=== PATIENT | male | born 1985 | race Caucasian/White ===

== ENCOUNTER 2020-10-10 13:27 | Emergency (ER) | payer OTHER ==
[~2020-10-10] VITALS: Ht 182 cm; Wt 140.0 kg
[2020-10-10] MEDS ORDERED: ASPIRIN 81 MG CHEW (CHILDREN'S ASA) PO ONE (14:00)
[2020-10-10] MEDS ORDERED: LIDOCAINE 2% VISCOUS 15 ML UDC PO ONE (14:00)
[2020-10-10] MEDS ORDERED: ANTACID SUSP 30 ML UDC (MYLANTA) PO ONE (14:00)
[2020-10-10] MEDS ORDERED: FAMOTIDINE 20MG/2ML IV (PEPCID) IV STA (14:00)
[2020-10-10 14:13] LABS: BASOPHILS # (AUTO) 0.1 10^3/uL (0.0-0.1); BASOPHILS % (AUTO) 1 % (0-10); EOSINOPHILS # (AUTO) 0.4 10^3/uL (0.0-0.3); EOSINOPHILS % (AUTO) 4 % (0-10); HEMATOCRIT 44 % (40-54); HEMOGLOBIN 14.8 g/dL (13.3-17.7); LYMPHOCYTES # (AUTO) 2.4 10^3/uL (1.0-4.0); LYMPHOCYTES % (AUTO) 25 % (12-44); MEAN CORPUSCULAR HEMOGLOBIN 29 pg (25-34); MEAN CORPUSCULAR HGB CONC 33 g/dL (32-36); MEAN CORPUSCULAR VOLUME 87 fL (80-99); MEAN PLATELET VOLUME 10.9 fL (9.0-12.2); MONOCYTES # (AUTO) 0.7 10^3/uL (0.0-1.0); MONOCYTES % (AUTO) 8 % (0-12); NEUTROPHILS # (AUTO) 5.8 10^3/uL (1.8-7.8); NEUTROPHILS % (AUTO) 62 % (42-75); PLATELET COUNT 281 10^3/uL (130-400); WHITE BLOOD COUNT 9.3 10^3/uL (4.3-11.0)
[2020-10-10 14:27] LABS: INR 1.1 (0.8-1.4); PROTHROMBIN TIME PATIENT 14.3 SEC (12.2-14.7)
[2020-10-10 14:34] LABS: ALANINE AMINOTRANSFERASE 26 U/L (0-55); ALBUMIN 4.4 GM/DL (3.2-4.5); ALKALINE PHOSPHATASE 74 U/L (40-136); BILIRUBIN,TOTAL 0.3 MG/DL (0.1-1.0); BUN/CREATININE RATIO 11; CALCIUM 9.3 MG/DL (8.5-10.1); CARBON DIOXIDE 27 MMOL/L (21-32); CHLORIDE 104 MMOL/L (98-107); CREATININE SERUM 0.88 MG/DL (0.60-1.30); GFR ESTIMATED > 60; GLUCOSE 117 MG/DL (70-105); MAGNESIUM 1.7 MG/DL (1.6-2.4); POTASSIUM 3.8 MMOL/L (3.6-5.0); SODIUM 140 MMOL/L (135-145); TOTAL PROTEIN 7.6 GM/DL (6.4-8.2)
--- NOTE | 2020-10-10 14:37 | ED Chest Pain ---
General Chief Complaint: Chest Pain Stated Complaint: CP, SOB, DIZZY Nursing Triage Note: ARRIVED VIA AMB TO ROOM 01. ANXIOIUS. STATES HE WAS AT WORK AND EXPERIENCED A BRIEF CP THAT LASTED A MINUTE ALONG WITH SOA. STATES THIS HAS HAPPENED X3. DENIES CP OR SOA AT THIS TIME. Nursing Sepsis Screen: No Definite Risk Source: patient Exam Limitations: no limitations History of Present Illness Date Seen by Provider: Oct 10, 2020 Time Seen by Provider: 13:51 Initial Comments Here with report of sudden onset of sharp chest pain that went through to his back. Lasted about a minute and was associated with shortness of air. It then went away but he felt a little dizzy. He has had a few weeks of intermittent dizziness. He was checked at work and found to be slightly tachycardic. Ultimately he presented here. Does have family history of diabetes and heart disease. Does admit to drinking 2-3 or 4 drinks a night, usually of beer. Overall better currently. Did have an issue with acid reflux a month ago and started on omeprazole. States that he is taking that daily. Timing/Duration: 1 hour, changing over time, intermittent, gone now Severity/Quality: moderate, sharp Location: central Radiation: back Activities at Onset: none Prior CP/Workup: no prior cardiac workup ASA po BELT SPLICER: No NTG SL BELT SPLICER: No Associated Symptoms: No abdominal pain; back pain; No diaphoresis, No nausea/vomiting; shortness of breath; No weakness Allergies and Home Medications Allergies Coded Allergies: No Known Drug Allergies (Unverified , 10/10/20) Home Medications No Active Prescriptions or Reported Meds Patient Home Medication List Home Medication List Reviewed: Yes Review of Systems Review of Systems Constitutional: see HPI; No chills, No fever EENTM: No Nose Congestion, No Throat Pain Respiratory: Denies Cough, Denies Shortness of Air Cardiovascular: Chest Pain, Lightheadedness Gastrointestinal: No Symptoms Reported Genitourinary: No Symptoms Reported Musculoskeletal: see HPI; No muscle pain All Other Systems Reviewed Negative Unless Noted: Yes Past Swnwcry-Wwtpdd-Ieidgq Hx Past Med/Social Hx: Reviewed Nursing Past Med/Soc Hx Patient Social History Alcohol Use: Regular Use Alcohol Beverage of Choice: Beer Smoking Status: Former Smoker Recent Infectious Disease Expo: No Recent Hopitalizations: No Seasonal Allergies Seasonal Allergies: No Past Medical History Surgeries: No Respiratory: No Cardiac: No Neurological: No Genitourinary: No Gastrointestinal: No Musculoskeletal: No Endocrine: No Chronic Eye Infection Cancer: No Psychosocial: Yes Anxiety Integumentary: No Family Medical History Reviewed Nursing Family Hx Heart Disease, Cancer, Diabetes, Hypertension Physical Exam Vital Signs Vital Signs - First Documented 10/10/20 13:30 Temp 37.0 Pulse 91 Resp 16 B/P (MAP) 129/80 (96) Pulse Ox 99 O2 Delivery Room Air Capillary Refill : Less Than 3 Seconds Height, Weight, BMI Height: '" Weight: lbs. oz. kg; 42.00 BMI Method: General Appearance: No Apparent Distress, WD/WN, Obese HEENT: PERRL/EOMI, Pharynx Normal Neck: Full Range of Motion, Non Tender, Supple Respiratory: Lungs Clear, Normal Breath Sounds Cardiovascular: Regular Rate, Rhythm, No Murmur Gastrointestinal: Non Tender, Soft Extremity: Normal Range of Motion, Non Tender Neurologic/Psychiatric: Alert, Oriented x3 Skin: Normal Color, Warm/Dry Progress/Results/Core Measures Results/Orders Lab Results Laboratory Tests Test 10/10/20 14:05 10/10/20 15:36 Range/Units White Blood Count 9.3 4.3-11.0 10^3/uL Red Blood Count 5.12 4.30-5.52 10^6/uL Hemoglobin 14.8 13.3-17.7 g/dL Hematocrit 44 40-54 % Mean Corpuscular Volume 87 80-99 fL Mean Corpuscular Hemoglobin 29 25-34 pg Mean Corpuscular Hemoglobin Concent 33 32-36 g/dL Red Cell Distribution Width 12.8 10.0-14.5 % Platelet Count 281 130-400 10^3/uL Mean Platelet Volume 10.9 9.0-12.2 fL Immature Granulocyte % (Auto) 0 % Neutrophils (%) (Auto) 62 42-75 % Lymphocytes (%) (Auto) 25 12-44 % Monocytes (%) (Auto) 8 0-12 % Eosinophils (%) (Auto) 4 0-10 % Basophils (%) (Auto) 1 0-10 % Neutrophils # (Auto) 5.8 1.8-7.8 10^3/uL Lymphocytes # (Auto) 2.4 1.0-4.0 10^3/uL Monocytes # (Auto) 0.7 0.0-1.0 10^3/uL Eosinophils # (Auto) 0.4 H 0.0-0.3 10^3/uL Basophils # (Auto) 0.1 0.0-0.1 10^3/uL Immature Granulocyte # (Auto) 0.0 0.0-0.1 10^3/uL Prothrombin Time 14.3 12.2-14.7 SEC INR Comment 1.1 0.8-1.4 Activated Partial Thromboplast Time 30 24-35 SEC D-Dimer < 0.27 0.00-0.49 UG/ML Sodium Level 140 135-145 MMOL/L Potassium Level 3.8 3.6-5.0 MMOL/L Chloride Level 104 98-107 MMOL/L Carbon Dioxide Level 27 21-32 MMOL/L Anion Gap 9 5-14 MMOL/L Blood Urea Nitrogen 10 7-18 MG/DL Creatinine 0.88 0.60-1.30 MG/DL Estimat Glomerular Filtration Rate > 60 BUN/Creatinine Ratio 11 Glucose Level 117 H 70-105 MG/DL Calcium Level 9.3 8.5-10.1 MG/DL Corrected Calcium 9.0 8.5-10.1 MG/DL Magnesium Level 1.7 1.6-2.4 MG/DL Total Bilirubin 0.3 0.1-1.0 MG/DL Aspartate Amino Transf (AST/SGOT) 19 5-34 U/L Alanine Aminotransferase (ALT/SGPT) 26 0-55 U/L Alkaline Phosphatase 74 40-136 U/L Myoglobin 50.3 10.0-92.0 NG/ML Troponin I < 0.028 < 0.028 <0.028 NG/ML Total Protein 7.6 6.4-8.2 GM/DL Albumin 4.4 3.2-4.5 GM/DL TSH [place] Testing 1.44 0.35-4.94 UIU/ML My Orders Orders - LUIS FERNANDO DOBBS MD Cbc With Automated Diff (10/10/20 14:00) Magnesium (10/10/20 14:00) Chest 1 View, Ap/Pa Only (10/10/20 14:00) Ekg Tracing (10/10/20 14:00) Comprehensive Metabolic Panel (10/10/20 14:00) Myoglobin Serum (10/10/20 14:00) Protime With Inr (10/10/20 14:00) Partial Thromboplastin Time (10/10/20 14:00) O2 (10/10/20 14:00) Monitor-Rhythm Ecg Trace Only (10/10/20 14:00) Lipid Panel (10/11/20 06:00) Ed Iv/Invasive Line Start (10/10/20 14:00) Fibrin Degradation Products (10/10/20 14:00) Troponin I (10/10/20 14:00) Aspirin Chewable Tablet (Baby Aspirin Ch (10/10/20 14:00) Lidocaine 2% Viscous 15 Ml (Xylocaine Vi (10/10/20 14:00) Antacid Suspension (Mylanta Suspension (10/10/20 14:00) Famotidine Injection (Pepcid Injection) (10/10/20 14:00) Thyroid Analyzer (10/10/20 15:16) Troponin I (10/10/20 15:24) Medications Given in ED Current Medications Medications Dose Ordered Sig/Ana Route Start Time Stop Time Status Last Admin Dose Admin Al Hydrox/Mg Hydrox/Simethicone 30 ml ONCE ONCE PO 10/10/20 14:00 10/10/20 14:01 DC 10/10/20 14:15 30 ML Aspirin 324 mg ONCE ONCE PO 10/10/20 14:00 10/10/20 14:01 DC 10/10/20 14:13 324 MG Lidocaine HCl 15 ml ONCE ONCE PO 10/10/20 14:00 10/10/20 14:01 DC 10/10/20 14:15 15 ML Vital Signs/I&O 10/10/20 13:30 Temp 37.0 Pulse 91 Resp 16 B/P (MAP) 129/80 (96) Pulse Ox 99 O2 Delivery Room Air Blood Pressure Mean: 96 Progress Progress Note : Progress Note Seen and evaluated. IV, labs, chest x-ray and EKG ordered. ASA 324 mg p.o. Pepcid 20 mg IV and GI cocktail ordered. Monitor patient. 1515: Pain-free currently. No significant findings. We will repeat a troponin at 1530. If this is still negative then I think he can safely be discharged home. He has appointment with Dr. Hough on and I have instructed him to keep that appointment. We will add thyroid study now and view those results. Monitor patient. 1609: Troponin repeat study is negative. Thyroid study is normal. Currently no pain. At this point I think he is safe to do discharge. I will send a copy of the chart to Dr. Hough. He has appointment on . Discharged home with return precautions. Patient verbalized understanding of instructions and agreement with plan. Initial ECG Impression Date: Oct 10, 2020 Initial ECG Impression Time: 13:37 Initial ECG Rate: 91 Initial ECG Rhythm: Normal Sinus Initial ECG Comparisson: No Previous ECG Available Comment Sinus rhythm with normal axis. No evidence of ST elevation LA. No previous available for comparison. Interpreted by me. Diagnostic Imaging Diagonstic Imaging: Xray Plain Films/CT/US/NM/MRI: chest Comments NAME: ABHIJEET RUBIO [facility] REC#: [id number] PT STATUS: REG ER : 1985 PHYSICIAN: LUIS FERNANDO DOBBS MD ADMIT DATE: 10/10/20/ER Draft Date of Exam:10/10/20 CHEST 1 VIEW, AP/PA ONLY INDICATION: Chest pain. TECHNIQUE: Single view chest 3:01 PM. CORRELATION STUDY: None FINDINGS: The heart size is borderline. The mediastinal configuration and pulmonary vascularity are within normal limits. The lungs are clear with no consolidating infiltrate. There is no significant effusion or pneumothorax. IMPRESSION: 1. Negative for acute abnormality of the chest. Dictated on workstation # [id number] Dict: 10/10/20 1505 Trans: 10/10/20 1505 DO [id number] Interpreted by: LEANNE DIAZ DO Electronically signed by: Departure Impression Primary Impression: Chest pain Qualified Codes: R07.9 - Chest pain, unspecified Disposition: HOME, SELF-CARE Condition: Improved Departure-Patient Inst. Decision time for Depature: 16:10 Referrals: NO,LOCAL PHYSICIAN (PCP/Family) Primary Care Physician Patient Instructions: Chest Pain (DC) Add. Discharge Instructions: All discharge instructions reviewed with patient and/or family. Voiced understanding. Drink plenty of fluids and eat a normal diet. Decrease alcohol intake. You may take an [id number] Pepcid/famotidine 20 mg tablet daily for the next several days and then as needed along with your omeprazole. Keep appointment with your doctor on as scheduled. Return for worse pain, fever, vomiting, weakness, breathing problems or other concerns as needed. Scripts No Active Prescriptions or Reported Meds Copy Copies To 1: JANIE HOUGH MD, TIMOTHY D MD Oct 10, 2020 14:37
--- NOTE | 2020-10-10 15:06 | Diagnostic Imaging Report ---
INDICATION: Chest pain. TECHNIQUE: Single view chest 3:01 PM. CORRELATION STUDY: None FINDINGS: The heart size is borderline. The mediastinal configuration and pulmonary vascularity are within normal limits. The lungs are clear with no consolidating infiltrate. There is no significant effusion or pneumothorax. IMPRESSION: 1. Negative for acute abnormality of the chest. Dictated by: Dictated on workstation # [id number]
[2020-10-10 16:29] VITALS: BP 129/94
== END 2020-10-10 16:29 | disposition home or self-care (01) ==
LOC: ER 13:31
DX: R07.9 Chest pain, unspecified (principal); R42 Dizziness and giddiness; F41.9 Anxiety disorder, unspecified; Z87.891 Personal history of nicotine dependence; Z82.49 Family history of ischemic heart disease and other diseases of the circulatory system; Z80.9 Family history of malignant neoplasm, unspecified
CPT/HCPCS: 36415; 71045; 80053; 83735; 83874; 84443; 84484; 85025; 85379; 85610; 85730; 93005; 93041

== ENCOUNTER 2020-10-17 13:57 | Emergency (ER) | payer BC, OTHER ==
[~2020-10-17] VITALS: Ht 72 cm; Wt 139.0 kg
--- NOTE | 2020-10-17 15:00 | ED General ---
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 He states that now he has a stiff neck. Pt states he has been dizzy for weeks and followed up with his PCP nd has a MRI set up for next friday. Pt states he has an unbearable amount of anxiety the last week and he is not sleeping. pt has been losing weight. Nursing Sepsis Screen: No Definite Risk (TIKI MAHMOOD STUDENT) History of Present Illness Date Seen by Provider: Oct 17, 2020 Time Seen by Provider: 14:20 Initial Comments This is a 35 year old male presenting to the Emergency Department for a chief complaint of a popping on the top of his head. He was laying on the couch when he felt a pop on top of his head. He also felt like "fire going through his veins". He complained of dizziness for 3-4 weeks, feeling off balance, confusion, vertigo on with eye movement and not body, loss of concentration, difficulty gathering words, blurred vision, stiff neck and weakness everywhere. He has been unable to sleep or eat and has lost 12 pounds in 4 days. He denies head pain. He talked to Dr. Hough in [place] on who scheduled an MRI in a couple of weeks. 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 drinks alcohol 3d/wk. no drugs allergies to medicine: none medications: prilosec (TIKI MAHMOOD STUDENT) Allergies and Home Medications Allergies Coded Allergies: No Known Drug Allergies (Unverified , 10/10/20) Home Medications No Active Prescriptions or Reported Meds Patient Home Medication List Home Medication List Reviewed: Yes (RENALDO MORALES MD) Review of Systems Review of Systems Constitutional: dizziness, weakness EENTM: blurred vision Respiratory: no symptoms reported Cardiovascular: no symptoms reported Gastrointestinal: no symptoms reported Genitourinary: no symptoms reported Musculoskeletal: neck pain Skin: no symptoms reported Psychiatric/Neurological: Anxiety, Depressed, Weakness, Other (confusion) Hematologic/Lymphatic: No Symptoms Reported Immunological/Allergic: no symptoms reported (TIKI MAHMOOD STUDENT) Past Vvcgxxr-Hdzdwz-Pekiqo Hx Past Med/Social Hx: Reviewed Nursing Past Med/Soc Hx (RENALDO MORALES MD) Patient Social History Alcohol Use: Occasionally Uses Number of Drinks Today: AA Alcohol Beverage of Choice: Beer Smoking Status: Never a Smoker Recent Infectious Disease Expo: No Recent Hopitalizations: No (TIKI MAHMOOD) Seasonal Allergies Seasonal Allergies: No (TIKI MAHMOOD) Past Medical History Surgeries: No Respiratory: No Cardiac: No Neurological: No Genitourinary: No Gastrointestinal: No Gastroesophageal Reflux Musculoskeletal: No Endocrine: No Chronic Eye Infection Cancer: No Psychosocial: Yes Anxiety Integumentary: No (TIKI MAHMOOD) Family Medical History Heart Disease, Cancer, Diabetes, Hypertension (TIKI MAHMOOD) Physical Exam Vital Signs Vital Signs - First Documented 10/17/20 14:05 Temp 36.7 Pulse 91 Resp 18 B/P (MAP) 148/99 (115) Pulse Ox 95 O2 Delivery Room Air (RENALDO MORALES MD) Vital Signs Capillary Refill : Less Than 3 Seconds (TIKI MAHMOOD) Height, Weight, BMI Height: '" Weight: lbs. oz. kg; 268.00 BMI Method: General Appearance: Mild Distress (TIKI MAHMOOD) General Appearance: WD/WN, Mild Distress (Mildly anxious), Obese HEENT: PERRL/EOMI, Normal ENT Inspection Neck: Normal Inspection Respiratory: Lungs Clear, Normal Breath Sounds, No Accessory Muscle Use, No Respiratory Distress Cardiovascular: Regular Rate, Rhythm, No Edema, No Murmur Gastrointestinal: Normal Bowel Sounds, Non Tender, Soft Extremity: Normal Inspection, No Pedal Edema Neurologic/Psychiatric: Alert, Oriented x3, No Motor/Sensory Deficits, Normal Mood/Affect, auto body detailer II-XII Norm as Tested, Other (Normal qcdnik-ke-rpaz and mmdl-fd-impp) Skin: Normal Color, Warm/Dry (RENALDO MORALES MD) Progress/Results/Core Measures Suspected Sepsis Recent Fever Within 48 Hours: No Infection Criteria Present: None New/Unexplained Altered Menta: No Sepsis Screen: No Definite Risk SIRS Temperature: Pulse: 91 Respiratory Rate: 18 Blood Pressure 148 /99 Mean: 115 (MAHMOOD,TIKI X MED STUDENT) Results/Orders My Orders Orders - RENALDO MORALES MD Ct Head/Cervical Spine Wo (10/17/20 15:13) (RENALDO MORALES MD) Vital Signs/I&O 10/17/20 10/17/20 14:05 16:05 Temp 36.7 36.7 Pulse 91 88 Resp 18 18 B/P (MAP) 148/99 (115) 123/89 (115) Pulse Ox 95 95 O2 Delivery Room Air (RENALDO MORALES MD) Vital Signs/I&O Capillary Refill : Less Than 3 Seconds (TIKI MAHMOOD STUDENT) Blood Pressure Mean: 115 Progress Note : Time: 15:00 Progress Note - A previous visit about a week or 2 ago revealed no findings with his blood work, CXR, or EKG. A CT scan was discussed as an option for the patient. He preferred to go ahead with the CT. (TIKI MAHMOOD) Progress Note : Progress Note Patient had a fairly thorough work-up on his prior visit when he was already symptomatic. We discussed imaging of the head. Risks including radiation exposure and cost were discussed with the patient. He is quite anxious about his symptoms and acknowledges the risks but would like to proceed with imaging. CT of the head was unremarkable. Patient was advised he can follow-up with MRI as well for more sensitive imaging of the brain. MRI is already scheduled. (RENALDO MORALES MD) Departure Impression Primary Impression: Blurry vision, bilateral Additional Impressions: AMS (altered mental status) Qualified Codes: R41.82 - Altered mental status, unspecified Dizziness Insomnia Qualified Codes: G47.00 - Insomnia, unspecified Disposition: 01 HOME, SELF-CARE Condition: Stable Departure-Patient Inst. Decision time for Depature: 15:53 (RENALDO MORALES MD) Referrals: NO,LOCAL PHYSICIAN (PCP/Family) Primary Care Physician Patient Instructions: Insomnia Add. Discharge Instructions: For your blurry vision follow-up with an blind eyeletter for a general eye exam. Follow-up with your primary care provider in 1 to 2 weeks after initiating your new medications. Try to maintain a healthy lifestyle with a well-balanced nutritious diet, exercise, and appropriate amounts of sleep. Call with questions or concerns. Return to the emergency room with worsening conditions. All discharge instructions reviewed with patient and/or family. Voiced understanding. Scripts No Active Prescriptions or Reported Meds Medical Student Attestation and Attending Note: I have personally interviewed and examined this patient along with Tiki Mahmood, MS 3. I have reviewed student documentation including history, physical, and assessments. I agree with the documentation except where otherwise noted. (RENALDO MORALES MD) Copy Copies To 1: JANIE HOUGH MD, ELIZABETH X MED STUDENT Oct 17, 2020 15:00 RENALDO MORALES MD Oct 17, 2020 15:55
--- NOTE | 2020-10-17 15:38 | Diagnostic Imaging Report ---
PROCEDURE: CT head and CT cervical spine without contrast. TECHNIQUE: Multiple contiguous axial images were obtained through the brain and cervical spine without the use of intravenous contrast. Sagittal and coronal reformations through the cervical spine were then performed. Auto Exposure Controls were utilized during the CT exam to meet ALARA standards for radiation dose reduction. INDICATION: Stiff neck. Dizziness. Trauma. COMPARISON: None. FINDINGS: CT HEAD: The ventricles and cortical sulci are normal in size and contour. There is no midline shift or mass-effect. No acute intra-axial hemorrhage is seen. There are no abnormal areas of increased or decreased density to suggest acute hemorrhage or edema. No extra-axial masses or collections are present. The bony calvarium is intact. The visualized paranasal sinuses show minimal scattered mucosal thickening. The mastoid air cells are clear. CT CERVICAL SPINE: Evaluation of static alignment shows straightening with slight reversal of the normal lordotic curvature. Findings may relate to patient positioning as well as underlying spasm. There is no significant deep or retrolisthesis. There is no evidence of jumped facets. Vertebral body heights are maintained. There is no acute fracture. No bony fragments are seen within the spinal canal. No significant degenerative changes are identified. Pre and paravertebral soft tissue structures are unremarkable. Included portions of lung apices are clear. IMPRESSION: 1. No acute intracranial abnormality. No CT evidence of mass, acute infarct, or intracranial hemorrhage. 2. No acute fracture or dislocation of the cervical spine. Dictated by: Dictated on workstation # [id number]
[2020-10-17 16:05] VITALS: BP 123/89
== END 2020-10-17 16:05 | disposition home or self-care (01) ==
LOC: EDUNIT# 13:57 → ER 13:59
DX: H53.8 Other visual disturbances (principal); R41.82 Altered mental status, unspecified; R42 Dizziness and giddiness; G47.00 Insomnia, unspecified; F41.9 Anxiety disorder, unspecified; E66.9 Obesity, unspecified; Z68.45 Body mass index [BMI] 70 or greater, adult; Z82.49 Family history of ischemic heart disease and other diseases of the circulatory system; Z83.3 Family history of diabetes mellitus; Z80.9 Family history of malignant neoplasm, unspecified
CPT/HCPCS: 70450; 72125